=== PATIENT | male | born 1935 | race Caucasian/White ===

== ENCOUNTER 2021-05-14 05:00 | Inpatient (IN) | payer OTHER ==
[~2021-05-14] VITALS: Ht 167.6 cm; Wt 72.6 kg
[2021-05-14 07:40] LABS: BASOPHILS ABSOLUTE AUTO 0.03 K/mm3 (0.00-0.23); BASOPHILS PERCENT AUTO 0 % (0-2); EOSINOPHILS ABSOLUTE AUTO 0.04 K/mm3 (0.00-0.68); EOSINOPHILS PERCENT AUTO 1 % (0-6); Hematocrit 37.4 % (37.0-53.0); Hemoglobin 12.2 g/dL (13.5-17.5); IMMATURE GRAN ABSOLUTE AUTO 0.02 K/mm3 (0.00-0.10); IMMATURE GRAN PERCENT AUTO 0 % (0-1); LYMPHOCYTES ABSOLUTE AUTO 0.76 K/mm3 (0.84-5.20); LYMPHOCYTES PERCENT AUTO 10 % (21-46); MONOCYTES ABSOLUTE AUTO 0.57 K/mm3 (0.16-1.47); MONOCYTES PERCENT AUTO 7 % (4-13); Mean Corpuscular HGB 31.4 pg (26.0-34.0); Mean Corpuscular HGB Conc 32.6 g/dL (31.5-36.5); Mean Corpuscular Volume 96 fL (80-100); Mean Platelet Volume 11.2 fL (9.1-12.4); NEUTROPHILS ABSOLUTE AUTO 6.44 K/mm3 (1.96-9.15); NEUTROPHILS PERCENT AUTO 82 % (41-73); Platelet Count 198 K/mm3 (150-400); RDW Standard Deviation 46.1 fL (35.1-46.3); Red Blood Cell Count 3.89 M/mm3 (4.30-5.90); White Blood Cell Count 7.86 K/mm3 (4.00-11.30)
[2021-05-14 07:57] LABS: Alanine Aminotransfer (ALT/SGP 20 U/L (12-78); Albumin, Blood 3.8 g/dL (3.4-5.0); Albumin/Globulin Ratio 1.1 (0.8-1.8); Alk Phos 83 U/L (50-136); Anion Gap 5 mmol/L (6-16); Aspartate Aminotrans (AST/SGOT 20 U/L (12-37); Bilirubin, Total 0.6 mg/dL (0.1-1.0); Blood Urea Nitrogen 27 mg/dL (8-24); Bun/Creatinine Ratio 26.2 (12.0-20.0); CO2, Blood 28 mmol/L (21-32); Calcium, Blood 9.2 mg/dL (8.5-10.1); Chloride, Blood 105 mmol/L (98-108); Creatinine, Blood 1.03 mg/dL (0.60-1.20); Globulin, Blood 3.5 g/dL (2.2-4.0); Glomerular Filtration Rate >60 (60-); Glucose, Blood 100 mg/dL (70-99); Potassium, Blood 3.9 mmol/L (3.5-5.5); Sodium, Blood 138 mmol/L (136-145); Total Protein, Blood 7.3 g/dL (6.4-8.2)
[2021-05-14 08:54] LABS: Source, Urine Clean Catch
[2021-05-14 08:58] LABS: Appearance, Urine Clear (Clear); Bilirubin, Urine Neg (Neg); Blood, Urine Neg (Neg); Color, Urine Yellow (P-Yellow); Glucose Qualitative, Urine Neg (Neg); Ketones, Urine 2+ (Neg); Leukocyte Esterase, Urine Neg (Neg); Nitrite, Urine Neg (Neg); Protein, Urine 1+ (Neg); Urobilinogen, Urine NORM (Normal)
[2021-05-14 11:39] LABS: SARS-Cov-2 (COVID-19) PCR, MMC NEGATIVE (NEGATIVE)
[2021-05-14] MEDS ORDERED: Aspir 8181 MG PO (11:51)
[2021-05-14] MEDS ORDERED: Vitamin B-121000 MCG PO (11:53)
[2021-05-14] MEDS ORDERED: ZESTRIL40 M1 PO (11:53)
[2021-05-14] MEDS ORDERED: VITAMIN D31000 UNI1 PO (11:53)
--- NOTE | 2021-05-14 18:29 | NUR ---
SHIFT SUMMARY PT STATUS POST FOR VENTRAL HERNIA REPAIR. PT HAS DEMENTIA AND IS CONFUSED, WHICH IS HIS BASELINE. WAS NOT ABLE TO TAKE HIS ORAL BP MEDICATIONS BECAUSE HE BECAME CONFUSED AND DID UNDERSTAND HOW TO SWALLOW PILLS. INCISION AT MIDLINE WITH DERMABOND. INCISION SITE CDI. VSS. WILL REPORT TO ONCOMING RN.
--- NOTE | 2021-05-15 07:39 | NUR ---
SHIFT SUMMARY POD1 VENTRAL HERNIA REPAIR, ASSUMED CARE AT 2030 ON 05/14/21, ALERT BUT CONFUSED, AGGITATED WHEN HE WAKES UP AND RESISTANT TO NURSING CARE, ATTEMPTS TO REFUSE GAIT BELT, REFUSES USING FWW, 1 FALL TONIGHT PATIENT IS IMPULSIVE AND GETS UP QUICKLY, BED ALARM IN PLACE. FALL PRODUCED LAC ON POSTERIOR L HAND AND LEFT ELBOW, NO APPARENT HEAD INJURY OR LOSS OF CONCIOUSNESS. NO OTHER ACUTE EVENTS THIS SHIFT. CALL LIGHT IN REACH, REPORT GIVEN TO DAY RN.
[2021-05-15 10:01] LABS: BASOPHILS ABSOLUTE AUTO 0.01 K/mm3 (0.00-0.23); BASOPHILS PERCENT AUTO 0 % (0-2); EOSINOPHILS PERCENT AUTO 0 % (0-6); Hematocrit 38.8 % (37.0-53.0); Hemoglobin 12.5 g/dL (13.5-17.5); IMMATURE GRAN ABSOLUTE AUTO 0.03 K/mm3 (0.00-0.10); IMMATURE GRAN PERCENT AUTO 0 % (0-1); LYMPHOCYTES ABSOLUTE AUTO 0.58 K/mm3 (0.84-5.20); LYMPHOCYTES PERCENT AUTO 6 % (21-46); MONOCYTES ABSOLUTE AUTO 0.47 K/mm3 (0.16-1.47); MONOCYTES PERCENT AUTO 5 % (4-13); Mean Corpuscular HGB 31.6 pg (26.0-34.0); Mean Corpuscular HGB Conc 32.2 g/dL (31.5-36.5); Mean Corpuscular Volume 98 fL (80-100); Mean Platelet Volume 11.9 fL (9.1-12.4); NEUTROPHILS ABSOLUTE AUTO 9.21 K/mm3 (1.96-9.15); NEUTROPHILS PERCENT AUTO 89 % (41-73); Platelet Count 201 K/mm3 (150-400); RDW Coefficient Variation 12.9 % (11.7-14.2); RDW Standard Deviation 46.5 fL (35.1-46.3); Red Blood Cell Count 3.96 M/mm3 (4.30-5.90)
[2021-05-15 10:28] LABS: Alanine Aminotransfer (ALT/SGP 21 U/L (12-78); Albumin, Blood 3.5 g/dL (3.4-5.0); Albumin/Globulin Ratio 0.9 (0.8-1.8); Alk Phos 61 U/L (50-136); Anion Gap 6 mmol/L (6-16); Aspartate Aminotrans (AST/SGOT 26 U/L (12-37); Bilirubin, Total 0.9 mg/dL (0.1-1.0); Blood Urea Nitrogen 26 mg/dL (8-24); Bun/Creatinine Ratio 24.1 (12.0-20.0); CO2, Blood 26 mmol/L (21-32); Calcium, Blood 9.2 mg/dL (8.5-10.1); Chloride, Blood 104 mmol/L (98-108); Creatinine, Blood 1.08 mg/dL (0.60-1.20); Globulin, Blood 3.7 g/dL (2.2-4.0); Glomerular Filtration Rate >60 (60-); Glucose, Blood 132 mg/dL (70-99); Magnesium, Blood 2.4 mg/dL (1.6-2.4); Potassium, Blood 4.1 mmol/L (3.5-5.5); Sodium, Blood 136 mmol/L (136-145); Total Protein, Blood 7.2 g/dL (6.4-8.2)
--- NOTE | 2021-05-15 17:59 | NUR ---
SHIFT SUMMARY PT HAS BEEN PLEASANT TODAY, HOWEVER HAS BEEN VERY CONFUSED/FORGETFUL. ORIENTED TO SELF AND BIRTHDAY T/O THE SHIFT, BUT FREQUENTLY NEEDS REORIENTATION ABOUT WHERE HE IS AND WHY. PT IS NEEDING SBA-1X ASSIST UP TO BATHROOM HE HAS BEEN UNSTEADY ON HIS FEET. HE HAS BEEN UP IN CHAIR MOST OF THE SHIFT. TOLERATING PO INTAKE AND VOIDING. USING BED ALARM AND TAB ALARM T/O THE DAY. PT HAS SET OFF ALARMS MULTIPLE TIMES, HE FORGETS TO USE CALL LIGHT.
--- NOTE | 2021-05-16 05:05 | NUR ---
SHIFT SUMMARY PATIENT FORGETFUL BUT PLEASANT THROUGHOUT SHIFT. DOESN'T USE CALL LIGHT. BED ALARM ON. GETS UP TO BATHROOM SEVERAL TIMES DURING SHIFT. SBA WITH GAIT BELT. MIDLINE ABD INCISION WNL. DECLINES PAIN MEDS. SLEPT MOST OF NIGHT.
--- NOTE | 2021-05-16 09:06 | NUR ---
ASSUMED CARE 0700. PT ALERT, UP IN RECLINER CHAIR WITH TAB ALARM ON. PT IS CONFUSED, REMEMBERS NAME AND BIRTHDATE BUT UNSURE WHERE HE IS, NEEDING FREQUENT REORIENTATION. FREQUENTLY SETTING OFF TAB ALARM. PROVIDER IN TO SEE PT. BELIEVES PT TO BE AT BASELINE AND PLAN IS TO DISCHARGE TODAY.
--- NOTE | 2021-05-16 15:21 | NUR ---
DISCHARGE PT ALERT AND PLEASANTLY CONFUSED. UP WITH SBA IN ROOM. TOLERATING PO INTAKE AND VOIDING. PT DC'D WITH HOME HEALTH ORDERS; ORDERS FAXED TO [facility]. DC INSTRUCTIONS REVIEWED WITH PT AND PT'S FRIEND, WHO IS PROVIDING A RIDE HOME. PT REPORTS NO QUESTIONS OR CONCERNS. PROVIDER WAS IN TO SEE PT THIS MORNING AND FEELS PT IS AT BASELINE, THEREFORE DC'ING HOME. PT ESCORTED TO VEHICLE VIA WHEELCHAIR. PERSONAL BELONGINGS SENT WITH PT. PT DC'D AT 1510.
== END 2021-05-16 15:16 | disposition home health service (06) | DRG 354 ==
LOC: ER 05:00 → SURS 11:01
PROVIDERS: Emergency Medicine; Nurse Practitioner Acute Care; Surgery; ADMIT Hospitalist
PROC: 0WQF0ZZ Repair Abdominal Wall, Open Approach (ICD-10-PCS; principal; 2021-05-14 11:15)
DX: K43.6 Other and unspecified ventral hernia with obstruction, without gangrene (principal); F05 Delirium due to known physiological condition; Z20.822 Contact with and (suspected) exposure to COVID-19; I48.0 Paroxysmal atrial fibrillation; E78.5 Hyperlipidemia, unspecified; I10 Essential (primary) hypertension; F03.90 Unspecified dementia, unspecified severity, without behavioral disturbance, psychotic disturbance, mood disturbance, and anxiety; I44.1 Atrioventricular block, second degree; I25.10 Atherosclerotic heart disease of native coronary artery without angina pectoris; Z66 Do not resuscitate; Z74.09 Other reduced mobility; Z95.5 Presence of coronary angioplasty implant and graft; Z86.73 Personal history of transient ischemic attack (TIA), and cerebral infarction without residual deficits; Z95.0 Presence of cardiac pacemaker; Z79.899 Other long term (current) drug therapy; Z79.82 Long term (current) use of aspirin
CPT/HCPCS: 36415; 74177; 80053; 83690; 83735; 85025; 93005; 93010; 96374-59; 96375; 97116; 97162; 99285-25; A9270; J0330; J0360; J0690; J1100; J1885; J2270; J2370; J2405; J2704; J3010; J7120; Q9967; U0004

== ENCOUNTER 2021-09-02 04:59 | Emergency (ER) | payer OTHER ==
[~2021-09-02] VITALS: Ht 177.8 cm; Wt 77.1 kg
[~2021-09-02 04:59] MED LIST: Aspir 8181 MG PO; VITAMIN D31000 UNI1 PO; Vitamin B-121000 MCG PO; ZESTRIL40 M1 PO
== END 2021-09-02 10:10 | disposition home or self-care (01) ==
LOC: ER 04:59
DX: S01.01XA Laceration without foreign body of scalp, initial encounter (principal); I10 Essential (primary) hypertension; E78.5 Hyperlipidemia, unspecified; D64.9 Anemia, unspecified; I25.10 Atherosclerotic heart disease of native coronary artery without angina pectoris; W19.XXXA Unspecified fall, initial encounter
CPT/HCPCS: 12001; 70450; 99284-25

== ENCOUNTER 2021-10-16 06:47 | Emergency (ER) | payer OTHER ==
[~2021-10-16] VITALS: Ht 177.8 cm; Wt 72.6 kg
[2021-10-16 07:30] LABS: BASOPHILS ABSOLUTE AUTO 0.05 K/mm3 (0.00-0.23); BASOPHILS PERCENT AUTO 0 % (0-2); EOSINOPHILS ABSOLUTE AUTO 0.03 K/mm3 (0.00-0.68); EOSINOPHILS PERCENT AUTO 0 % (0-6); Hematocrit 39.4 % (37.0-53.0); IMMATURE GRAN ABSOLUTE AUTO 0.05 K/mm3 (0.00-0.10); IMMATURE GRAN PERCENT AUTO 0 % (0-1); LYMPHOCYTES PERCENT AUTO 5 % (21-46); MONOCYTES ABSOLUTE AUTO 0.78 K/mm3 (0.16-1.47); MONOCYTES PERCENT AUTO 7 % (4-13); Mean Corpuscular HGB 31.7 pg (26.0-34.0); Mean Corpuscular Volume 96 fL (80-100); Mean Platelet Volume 11.2 fL (9.1-12.4); NEUTROPHILS ABSOLUTE AUTO 9.69 K/mm3 (1.96-9.15); NEUTROPHILS PERCENT AUTO 87 % (41-73); Platelet Count 212 K/mm3 (150-400); RDW Coefficient Variation 12.6 % (11.7-14.2); RDW Standard Deviation 44.5 fL (35.1-46.3)
[2021-10-16 07:37] LABS: Bun/Creatinine Ratio 22.2 (12.0-20.0); Calcium, Blood 9.3 mg/dL (8.5-10.1); Creatinine, Blood 1.67 mg/dL (0.60-1.20); Potassium, Blood 4.5 mmol/L (3.5-5.5)
[2021-10-16] MEDS ORDERED: Xeroform Petro1 EAC3 TOP (07:57)
[2021-10-16] MEDS ORDERED: BACITO TOP (07:57)
== END 2021-10-16 08:20 | disposition home or self-care (01) ==
LOC: ER 06:47
PROVIDERS: Emergency Medicine
DX: T24.222A Burn of second degree of left knee, initial encounter (principal); I48.91 Unspecified atrial fibrillation; I11.0 Hypertensive heart disease with heart failure; I50.9 Heart failure, unspecified; Z79.899 Other long term (current) drug therapy
CPT/HCPCS: 36415; 80048; 85025; 99283

== ENCOUNTER 2022-01-09 13:34 | Emergency (ER) | payer OTHER ==
[~2022-01-09] VITALS: Ht 175.3 cm; Wt 77.1 kg
[~2022-01-09 13:34] MED LIST changes: +BACITO TOP; +Xeroform Petro1 EAC3 TOP
[2022-01-09 13:58] LABS: BASOPHILS ABSOLUTE AUTO 0.04 K/mm3 (0.00-0.23); BASOPHILS PERCENT AUTO 1 % (0-2); EOSINOPHILS ABSOLUTE AUTO 0.15 K/mm3 (0.00-0.68); EOSINOPHILS PERCENT AUTO 2 % (0-6); Hematocrit 40.7 % (37.0-53.0); Hemoglobin 13.3 g/dL (13.5-17.5); IMMATURE GRAN ABSOLUTE AUTO 0.02 K/mm3 (0.00-0.10); IMMATURE GRAN PERCENT AUTO 0 % (0-1); LYMPHOCYTES ABSOLUTE AUTO 1.17 K/mm3 (0.84-5.20); LYMPHOCYTES PERCENT AUTO 15 % (21-46); MONOCYTES ABSOLUTE AUTO 0.99 K/mm3 (0.16-1.47); MONOCYTES PERCENT AUTO 13 % (4-13); Mean Corpuscular HGB 31.2 pg (26.0-34.0); Mean Corpuscular HGB Conc 32.7 g/dL (31.5-36.5); Mean Corpuscular Volume 96 fL (80-100); Mean Platelet Volume 11.2 fL (9.1-12.4); NEUTROPHILS ABSOLUTE AUTO 5.24 K/mm3 (1.96-9.15); NEUTROPHILS PERCENT AUTO 69 % (41-73); Platelet Count 206 K/mm3 (150-400); RDW Coefficient Variation 12.5 % (11.7-14.2); RDW Standard Deviation 43.9 fL (35.1-46.3); Red Blood Cell Count 4.26 M/mm3 (4.30-5.90); White Blood Cell Count 7.61 K/mm3 (4.00-11.30)
[2022-01-09 14:12] LABS: Source, Urine Straight Cath
[2022-01-09 14:12] LABS: Albumin, Blood 3.4 g/dL (3.4-5.0); Albumin/Globulin Ratio 0.8 (0.8-1.8); Bilirubin, Total 0.7 mg/dL (0.1-1.0); Bun/Creatinine Ratio 16.8 (12.0-20.0); Calcium, Blood 9.3 mg/dL (8.5-10.1); Creatinine, Blood 1.25 mg/dL (0.60-1.20); Globulin, Blood 4.2 g/dL (2.2-4.0); Potassium, Blood 4.2 mmol/L (3.5-5.5); Total Protein, Blood 7.6 g/dL (6.4-8.2)
[2022-01-09 14:17] LABS: Appearance, Urine Clear (Clear); Bilirubin, Urine Neg (Neg); Blood, Urine 1+ (Neg); Color, Urine Yellow (P-Yellow); Glucose Qualitative, Urine Neg (Neg); Ketones, Urine Neg (Neg); Leukocyte Esterase, Urine Neg (Neg); Nitrite, Urine Neg (Neg); Protein, Urine 2+ (Neg); Urobilinogen, Urine NORM (Normal)
[2022-01-09 16:00] LABS: Bacteria Few /hpf; Squamous Epithelial Cells Few /hpf (Few)
[2022-01-09 16:01] LABS: Renal Epithelial Few /hpf (0-Rare)
== END 2022-01-09 17:07 | disposition home or self-care (01) ==
LOC: ER 13:34
PROVIDERS: Emergency Medicine
DX: R53.1 Weakness (principal); I11.0 Hypertensive heart disease with heart failure; I50.9 Heart failure, unspecified; E78.5 Hyperlipidemia, unspecified; I25.10 Atherosclerotic heart disease of native coronary artery without angina pectoris; F03.90 Unspecified dementia, unspecified severity, without behavioral disturbance, psychotic disturbance, mood disturbance, and anxiety; Z79.899 Other long term (current) drug therapy
CPT/HCPCS: 36415; 71045; 80053; 81001; 85025; 99284-25

== ENCOUNTER 2022-01-09 19:25 | Observation (INO) | payer OTHER ==
[~2022-01-09] VITALS: Ht 175.3 cm; Wt 73.6 kg
[2022-01-09 20:52] LABS: BASOPHILS ABSOLUTE AUTO 0.04 K/mm3 (0.00-0.23); BASOPHILS PERCENT AUTO 1 % (0-2); EOSINOPHILS ABSOLUTE AUTO 0.19 K/mm3 (0.00-0.68); EOSINOPHILS PERCENT AUTO 2 % (0-6); Hematocrit 40.6 % (37.0-53.0); Hemoglobin 13.3 g/dL (13.5-17.5); IMMATURE GRAN ABSOLUTE AUTO 0.04 K/mm3 (0.00-0.10); IMMATURE GRAN PERCENT AUTO 1 % (0-1); LYMPHOCYTES ABSOLUTE AUTO 1.49 K/mm3 (0.84-5.20); LYMPHOCYTES PERCENT AUTO 19 % (21-46); MONOCYTES ABSOLUTE AUTO 1.03 K/mm3 (0.16-1.47); MONOCYTES PERCENT AUTO 13 % (4-13); Mean Corpuscular HGB 30.6 pg (26.0-34.0); Mean Corpuscular HGB Conc 32.8 g/dL (31.5-36.5); Mean Corpuscular Volume 93 fL (80-100); Mean Platelet Volume 11.8 fL (9.1-12.4); NEUTROPHILS ABSOLUTE AUTO 5.11 K/mm3 (1.96-9.15); NEUTROPHILS PERCENT AUTO 65 % (41-73); Platelet Count 229 K/mm3 (150-400); RDW Coefficient Variation 12.4 % (11.7-14.2); RDW Standard Deviation 43.4 fL (35.1-46.3); Red Blood Cell Count 4.35 M/mm3 (4.30-5.90)
[2022-01-09 22:39] LABS: Influenza A, PCR NEGATIVE (NEGATIVE); Influenza B, PCR NEGATIVE (NEGATIVE); Resp Syncytial Virus, PCR NEGATIVE (NEGATIVE); SARS-Cov-2 (COVID-19) PCR, MMC NEGATIVE (NEGATIVE)
--- NOTE | 2022-01-10 02:10 | NUR ---
ADMISSION PATIENT ARRIVED FROM ER TO ICU 14 AT 0055. NO MEDICATIONS RUNNING AT THIS TIME. 20G PIV TO RT FA. MONITOR SHOWS PACED RHYTHM. VS STABLE. PATIENT ANSWERS QUESTIONS AND FOLLOWS COMMANDS. REPORT COMPLETED WITH NIKIA CLEMONS.
[2022-01-10 03:18] LABS: BASOPHILS ABSOLUTE AUTO 0.04 K/mm3 (0.00-0.23); BASOPHILS PERCENT AUTO 1 % (0-2); EOSINOPHILS ABSOLUTE AUTO 0.12 K/mm3 (0.00-0.68); EOSINOPHILS PERCENT AUTO 2 % (0-6); Hematocrit 36.5 % (37.0-53.0); Hemoglobin 12.1 g/dL (13.5-17.5); IMMATURE GRAN ABSOLUTE AUTO 0.02 K/mm3 (0.00-0.10); IMMATURE GRAN PERCENT AUTO 0 % (0-1); LYMPHOCYTES ABSOLUTE AUTO 1.01 K/mm3 (0.84-5.20); LYMPHOCYTES PERCENT AUTO 14 % (21-46); MONOCYTES ABSOLUTE AUTO 0.87 K/mm3 (0.16-1.47); MONOCYTES PERCENT AUTO 12 % (4-13); Mean Corpuscular HGB 31.1 pg (26.0-34.0); Mean Corpuscular HGB Conc 33.2 g/dL (31.5-36.5); Mean Corpuscular Volume 94 fL (80-100); Mean Platelet Volume 11.2 fL (9.1-12.4); NEUTROPHILS PERCENT AUTO 71 % (41-73); Platelet Count 202 K/mm3 (150-400); RDW Coefficient Variation 12.6 % (11.7-14.2); RDW Standard Deviation 43.5 fL (35.1-46.3); Red Blood Cell Count 3.89 M/mm3 (4.30-5.90); White Blood Cell Count 7.06 K/mm3 (4.00-11.30)
[2022-01-10 03:37] LABS: Bun/Creatinine Ratio 19.5 (12.0-20.0); Calcium, Blood 8.8 mg/dL (8.5-10.1); Creatinine, Blood 1.18 mg/dL (0.60-1.20); Potassium, Blood 4.2 mmol/L (3.5-5.5)
[2022-01-10 04:55] LABS: U Amphetamine Screen Not Detected; U Barbituate Screen Not Detected; U Benzodiazapine Screen Not Detected; U Buprenorphine Screen Not Detected; U Cannabinoids Screen Not Detected; U Cocaine Screen Not Detected; U Methadone Screen Not Detected; U Methamphetamine Screen Not Detected; U Opiates Screen Not Detected; U Oxycodone Screen Not Detected; U Phencyclidine Screen Not Detected; U Propoxyphene Screen Not Detected
--- NOTE | 2022-01-10 05:25 | NUR ---
SHIFT SUMMARY PATIENT SLEPT THROUGH SHIFT. HAD ONE PERIOD OF INCREASED CONFUSION WHERE HE WAS ONLY ORIENTED TO SELF-ATTEMPTED TO GET UP OUT OF BED TO URINATE. REORIENTED PATIENT AND PROVIDED URINAL-UA SENT FOR TOX SCREEN WHICH RESULTED NEGATIVE. PATIENT REPOSITIONS SELF IN BED. NS INF @ 100ML/HR TO 20G IV IN RT FA. NO OTHER CHANGES DURING SHIFT.
--- NOTE | 2022-01-10 08:17 | NUR ---
PATIENT ORIENTED TO SELF, US FOR DVT IN ROOM NOW, DENEIS ANY NEEDS PRESENTLY, WCTM, CALL LIGHT WIHT IN REACH
--- NOTE | 2022-01-10 10:12 | NUR ---
DR JAIME ROUNDED NEW ORDERS FOR LABS, STATUS CHANGE TO MEDICAL, AND SS CONSULT FOR INCREASED CARE NEEDS THAT [facility] CAN NOT PROVIDE
[2022-01-10 11:49] LABS: Magnesium, Blood 2.1 mg/dL (1.6-2.4); Thyroid Stimulating Hormone 1.8 uIU/mL (0.360-4.800)
--- NOTE | 2022-01-10 13:53 | NUR ---
PHYSICAL THERAPY IN ROOM WORKING WITH PATIENT, ASSIST TO EAT, 75% OF LUNCH, AWAKE, CONFUSED. BED ALARM ON WCTM
--- NOTE | 2022-01-10 16:14 | NUR ---
TRANSFER TO 332 REPORT TO BRIAN, TRANSPORTED VIA W/C, TELE ON, TRANSFERRED TO CHAIR IN ROOM, NO DISTRESS
--- NOTE | 2022-01-10 18:47 | NUR ---
SHIFT SUMMARY- PT ALERT AND ORIENTED TO SELF. PT IS VERY WEAK AND UNSTEADY ON HIS FEET. HE WAS TRANSFERED FROM ICU TO MEDICAL FLOOR THIS EVENING ON TELE RUNNING PACED AT 74. PT IS INCONTINENT OF BOWEL AND BLADDER AND IS BEING CHECKED AND CHANGED Q2 HOURS TO PREVENT SKIN BREAKDOWN. PT IS UNAWARE WHEN HE HAS VOIDED AND SO HAS TO BE CHECKED, PT IS A LITTLE IMPULSIVE SO BED AND CHAIR ALARMS ARE BEING USED FOR PT SAFETY. PER REPORT THE PT LIVES AT [facility] BUT REQUIRES MORE CARE THAN THEY CAN PROVIDE. PLAN IS FOR PLACEMENT. CASE MANAGEMENT IS INVOLVED PER REPORT. PT CURRENTLY SITTING UP IN THE CHAIR, CALL LIGHT IN REACH NO S&S OF DISTRESS NOTED.
--- NOTE | 2022-01-11 03:52 | NUR ---
CALLED HOSPITALIST INFORMED HER THAT PT PULLED OFF TELEMETRY LINES MULTIPLE TIMES. PT REMOVED IV. PT IS CONFUSED. PT EXITING BED. BED ALARM IS ON. PT IS NOT REDIRECTABLE. I DID LET HER KNOW THAT PT HAD A 10 BEAT RUN OF VTACH ON 01/10/22 AT 0642 HRS, AND HE HAS A PACEMAKER AND AN AICD. ORDERS FOR SOFT WRIST RESTRAINTS RECEIVED.
--- NOTE | 2022-01-11 04:34 | NUR ---
SHIFT SUMMARY ADMITTED FOR AMS/DEHYDRATION. FULL CODE. PLAN IS FOR PLACEMENT. TELEMETRY: PACED @ 70 BPM. HAS A PACEMAKER & AICD. SEE PREVIOUS NOTE. SOFT BILAT WRIST RESTRAINTS IN PLACE. 2 ASSIST TO BSC. CONFUSED AND IMPULSIVE. IV PULLED THIS SHIFT, NEW ONE IN PLACE. HE IS INCONTINENT. VA PATIENT.
[2022-01-11] MEDS ORDERED: LISI5 PO (12:09)
[2022-01-11] MEDS ORDERED: APHEN325 M1 PO (12:10)
--- NOTE | 2022-01-11 12:30 | NUR ---
Pt. is sitting up in chair waiting for lunch. Pt. welcomes my visit. Pt. is pleasant but displays evidence of confusion. Attempt to establish rapport. Pts. responses seem vague and detached from conversation. Attempt to establish rapport. Pt. is able to verbalize he [place] [employer] and served[place] a battles[place]. listen empathetically and thank him for his service to our country. Prayed a blessing over him, and assured him I would check on him at another time. Pt. verbalized gratitude for the spiritual care visit.
[2022-01-11 13:16] LABS: Influenza A, PCR NEGATIVE (NEGATIVE); Influenza B, PCR NEGATIVE (NEGATIVE); Resp Syncytial Virus, PCR NEGATIVE (NEGATIVE); SARS-Cov-2 (COVID-19) PCR, MMC NEGATIVE (NEGATIVE)
--- NOTE | 2022-01-11 14:08 | NUR ---
DISCHARGE NOTE- PT WAS GIVEN WRITTEN DISCHARGE INSTRUCTIONS AND WAS UNABLE TO SIGN DUE TO DEMENTIA. ORDERS SENT WITH THE TRANSPORT THAT TOOK THE PT BACK TO HIS FACILITY, [facility]. PT WAS DRESSED IN HIS NORMAL CLOTHING WITH THE ASSISTANCE OF STAFF. PT WAS TAKEN VIA TRANSPOTR. IV AND TELE DC'D PRIOR TO DISCHARGE NO S&S OF DISTRESS NOTED AT THE TIME OF DISCHARGE.
== END 2022-01-11 14:11 | disposition home or self-care (01) ==
LOC: ER 19:25 → ICUW 23:17 → MEDS 01-10 16:19
PROVIDERS: Emergency Medicine; Internal Medicine; ADMIT Family Medicine
DX: G93.41 Metabolic encephalopathy (principal); I25.10 Atherosclerotic heart disease of native coronary artery without angina pectoris; I11.0 Hypertensive heart disease with heart failure; I50.9 Heart failure, unspecified; I49.3 Ventricular premature depolarization; I44.7 Left bundle-branch block, unspecified; F03.90 Unspecified dementia, unspecified severity, without behavioral disturbance, psychotic disturbance, mood disturbance, and anxiety; N17.9 Acute kidney failure, unspecified; D64.9 Anemia, unspecified; E86.0 Dehydration; I48.0 Paroxysmal atrial fibrillation; Z95.810 Presence of automatic (implantable) cardiac defibrillator; Z79.01 Long term (current) use of anticoagulants; Z20.822 Contact with and (suspected) exposure to COVID-19
CPT/HCPCS: 0241U; 36415; 70450; 80048; 83735; 83880; 84145; 84443; 84484; 85025; 93005; 93010; 93970; 96372; 97110; 97162; 97166; 97535; 99285-25; A9270; G0378; J1650; J7030

== ENCOUNTER → 2022-05-25 | Outpatient (CLI) | payer OTHER ==
[~2022-05-25] MED LIST changes: +APHEN325 M1 PO; +LISI5 PO
[2022-05-25 12:26] LABS: Source, Urine Clean Catch
[2022-05-25 13:09] LABS: Appearance, Urine Hazy (Clear); Bilirubin, Urine Neg (Neg); Blood, Urine 1+ (Neg); Color, Urine Amber (P-Yellow); Glucose Qualitative, Urine Neg (Neg); Ketones, Urine Neg (Neg); Leukocyte Esterase, Urine Neg (Neg); Nitrite, Urine Neg (Neg); Protein, Urine 2+ (Neg); Urobilinogen, Urine NORM (Normal)
[2022-05-25 13:23] LABS: Bacteria Few /hpf; Granular Casts 0-2 /lpf (0); Red Blood Cells, Urine 0-2 /hpf (0-2); Squamous Epithelial Cells Few /hpf (Few); White Blood Cells, Urine 0-2 /hpf (0-5)
== END | disposition home or self-care (01) ==
LOC: LAB SHORT 11:30
PROVIDERS: Family Medicine
DX: N39.0 Urinary tract infection, site not specified (principal)
CPT/HCPCS: 81001

== ENCOUNTER 2022-10-05 18:22 | Emergency (ER) | payer MEDICARE, OTHER ==
[~2022-10-05] VITALS: Ht 177.8 cm; Wt 72.6 kg
[2022-10-05] MEDS ORDERED: ZESTRIL40 MG PO (18:53)
[2022-10-05 19:01] LABS: BASOPHILS ABSOLUTE AUTO 0.06 K/mm3 (0.00-0.23); BASOPHILS PERCENT AUTO 1 % (0-2); EOSINOPHILS ABSOLUTE AUTO 0.31 K/mm3 (0.00-0.68); EOSINOPHILS PERCENT AUTO 5 % (0-6); Hematocrit 42.5 % (37.0-53.0); IMMATURE GRAN ABSOLUTE AUTO 0.01 K/mm3 (0.00-0.10); IMMATURE GRAN PERCENT AUTO 0 % (0-1); LYMPHOCYTES ABSOLUTE AUTO 1.63 K/mm3 (0.84-5.20); LYMPHOCYTES PERCENT AUTO 24 % (21-46); MONOCYTES ABSOLUTE AUTO 0.74 K/mm3 (0.16-1.47); MONOCYTES PERCENT AUTO 11 % (4-13); Mean Corpuscular HGB 31.1 pg (26.0-34.0); Mean Corpuscular HGB Conc 32.9 g/dL (31.5-36.5); Mean Corpuscular Volume 94 fL (80-100); Mean Platelet Volume 10.6 fL (9.1-12.4); NEUTROPHILS ABSOLUTE AUTO 3.94 K/mm3 (1.96-9.15); NEUTROPHILS PERCENT AUTO 59 % (41-73); Platelet Count 212 K/mm3 (150-400); RDW Coefficient Variation 12.4 % (11.7-14.2); White Blood Cell Count 6.69 K/mm3 (4.00-11.30)
[2022-10-05 19:19] LABS: Albumin, Blood 3.6 g/dL (3.4-5.0); Albumin/Globulin Ratio 0.9 (0.8-1.8); Bilirubin, Total 0.4 mg/dL (0.1-1.0); Bun/Creatinine Ratio 23.4 (12.0-20.0); Calcium, Blood 9.5 mg/dL (8.5-10.1); Creatinine, Blood 1.37 mg/dL (0.60-1.20); Potassium, Blood 4.3 mmol/L (3.5-5.5); Total Protein, Blood 7.6 g/dL (6.4-8.2)
== END 2022-10-05 21:32 | disposition home or self-care (01) ==
LOC: ER 18:22
PROVIDERS: Emergency Medicine
DX: R41.82 Altered mental status, unspecified (principal); I11.0 Hypertensive heart disease with heart failure; I50.9 Heart failure, unspecified; I48.91 Unspecified atrial fibrillation; I25.10 Atherosclerotic heart disease of native coronary artery without angina pectoris; Z79.899 Other long term (current) drug therapy
CPT/HCPCS: 36415; 80053; 85025; 93005; 93010